=== PATIENT | male | born 2000 | race Caucasian/White ===

== ENCOUNTER → 2021-07-24 15:48 | Outpatient (BNVA) | payer BC, SELFPAY | PROVIDERS: Visit Provider Nurse Practitioner Family | DX: Z20.822 Contact with and (suspected) exposure to COVID-19 (principal) | CPT/HCPCS: 87635 ==

== ENCOUNTER 2021-09-13 14:18 | Emergency (ER) | payer OTHER, SELFPAY ==
[2021-09-13 14:35] VITALS: BP 160/100; PULSE 99; RESP 14; TEMP 36.9; O2SAT 98; BMI 38.8
--- NOTE | 2021-09-13 14:41 | ED_ITS ---
HPI - Eye Problem General: Chief complaint: Eye Problems Stated complaint: LEFT EYE TROUBLE Time Seen by Provider: 09/13/21 14:41 Source: patient Mode of arrival: ambulatory Limitations: no limitations History of Present Illness: HPI Narrative: Patient is a 21-year-old male who presents to ED today for evaluation of his left eye. Patient tells me he was working on a corroded battery when he feels like a small amount of metal/corrosion flipped into his left eye. Patient tells me he immediately irrigated the eye copiously. He has since complained of some mild burning and redness. He is not having any visual changes. No foreign body sensation. Tetanus is UTD. chief complaint: eye pain and eye redness Onset (ago): hour(s) Onset description: sudden Location: left eye Eye Symptoms: burning and redness Place: work Mechanism: chemical exposure Severity: mild Associated symptoms: Reports no associated symptoms; Denies headache(s) Treatments Prior to Arrival: irrigated eye Related Data: Patient tetanus UTD: Yes Review of Systems Eyes: Reports: eye discomfort; Denies: change in vision, blurry vision, blind spots, photophobia, eye discharge, floaters or seeing flashes Neuro: Denies: headache(s) PFSH ED PFSH: Social History (Updated 07/24/21 @ 15:39 by Kirstie Kim NP) Smoking and tobacco status: never smoked Alcohol intake: never Physical Exam Const: COMMON NORMALS: no acute distress, patient oriented x3, no limitations and alert GENERAL APPEARANCE: cooperative Eye: COMMON NORMALS: Equal, round and reactive pupils present, EOMs intact bilaterally and no scleral icterus GENERAL EYE: normal light reflex VISUAL ACUITY: Yes acuity normal ALIGNMENT: Yes alignment normal PERIORBITAL: periorbital findings normal EYELID: eyelids normal CONJUNCTIVA: Yes conjunctival abnormal positive left (injection) SCLERA: sclerae normal CORNEA: Yes corneas normal PUPIL: Yes Equal, round and reactive pupils present DIRECT OPHTHALMOSCOPY: Yes normal light reflex OTHER: he did have a very small/barron white foreign body (that most likley was corrosive material) floating around that was easily removed with moist q-tip; pH of the eye was tested with litmus paper and is normal and equal to unaffected eye; no corneal abrasion or ulcer visualized with fluorescein stain; no globe injury Neuro: COMMON NORMALS: patient oriented x3 SENSORIUM/ORIENTATION: Yes alert Course Vital Signs: Vital signs: Vital Signs Temperature 98.4 F 09/13/21 14:35 Pulse Rate 99 09/13/21 14:35 Respiratory Rate 14 09/13/21 14:35 Blood Pressure 160/100 09/13/21 14:35 Pulse Oximetry 98 09/13/21 14:35 MDM - Eye Problem MDM Narrative: Medical decision making narrative: Very small foreign body was easily removed. I do not visualize any corneal abrasion or ulcer at this time. Most likely has a very mild chemical burn to the eye. pH was normal. Eye was copiously irrigated and instructions to continue this at home. He will be placed on erythromycin ointment. Strict return to ED precautions given. He does not complain of visual changes or fb sensation at this time. Discharge Plan Discharge Patient Disposition: Home Clinical Impression: Chemical burn of left eye Condition: Stable Prescriptions: New erythromycin 5 mg/gram (0.5 %) ointment 1 applic ophthalmic (eye) Q4H 7 Days Qty: 1 RF: 0 Discharge Orders: Discharge ED (Routine); Ordered 09/13/21 Ordered By: Vanda Layne Patient Instructions: Chemical Eye [place] (ED) Activity Restrictions/Additional Instructions: As we discussed continue irrigating the eye several times daily. You may apply the erythromycin ointment as directed. As we discussed you need to return to the ED immediately for severe eye pain, discharge, changes to vision, foreign body sensation or any other concerns you may have. Coding Level of Care Code ED [employer] for [employer] Exam Expanded Problem Focused
[2021-09-13] MEDS: fluorescein 1 mg Strip EYE-LEFT (15:23)
[2021-09-13] MEDS: tetracaine 0.5% Op Soln 4 mL Btl 1 DROP EYE-LEFT (15:23)
[2021-09-13] MEDS: eye irrigation 30 mL Btl EYE-LEFT (15:24)
== END 2021-09-13 15:54 | disposition home or self-care (01) ==
PROVIDERS: Emergency Provider Physician Assistant
DX: T65.91XA Toxic effect of unspecified substance, accidental (unintentional), initial encounter (principal); T26.92XA Corrosion of left eye and adnexa, part unspecified, initial encounter
CPT/HCPCS: 99283

== ENCOUNTER → 2024-05-26 17:17 | Outpatient (BNVA) | payer BC, SELFPAY | PROVIDERS: PCP Nurse Practitioner Family; Visit Provider Specialist | DX: R56.9 Unspecified convulsions (principal); G40.109 Localization-related (focal) (partial) symptomatic epilepsy and epileptic syndromes with simple partial seizures, not intractable, without status epilepticus; R29.90 Unspecified symptoms and signs involving the nervous system | CPT/HCPCS: 36415; 82550 ==

== ENCOUNTER 2025-04-11 03:21 | Emergency (ER) | payer OTHER, SELFPAY ==
[2025-04-11 03:22] VITALS: BP 117/84; PULSE 77; RESP 19; TEMP 37.5; O2SAT 96; BMI 37.2
[2025-04-11 03:29] VITALS: BP 117/84; PULSE 91; RESP 20; O2SAT 92
[2025-04-11 03:38] LABS: Basophils # 0.1 10^3/uL (0.0-0.1); Basophils % 0.6 %; Eosinophils % 0.1 %; Hematocrit 47.4 % (37-53); Lymphocytes # 1.4 10^3/uL (0.8-4.8); Lymphocytes % 8.9 %; Mean Corpuscular Hemoglobin 30.2 pg (27-33); Mean Corpuscular Volume 88.9 fl (82-101); Monocytes # 0.7 10^3/uL (0.2-0.9); Monocytes % 4.6 %; Neutrophils # 13.02 10^3/uL (1.8-7.7); Nucleated Red Blood Cells % 0 %; Platelet Count 218 10^3/cmm (157-399); Red Blood Count 5.33 10^6/uL (3.85-5.65); Red Cell Distribution Width 12.4 % (12.1-15.1); White Blood Count 15.32 10^3/uL (3.29-11.43)
--- NOTE | 2025-04-11 03:51 | CTR_ITS ---
PROCEDURE INFORMATION: Exam: CT Head Without Contrast Exam date and time: 04/11/2025 4:05 AM Age: 25 years old Clinical indication: Condition or disease; Convulsions or seizures; Prior surgery; Surgery date: 6+ months; Surgery type: Benign tumor resection; Multiple seizures today. States worsening seizures over the last year and a half. History of frontal tumor resection in 2018. ; Additional info: Recurrent seizures TECHNIQUE: Imaging protocol: Computed tomography of the head without contrast. Radiation optimization: All CT scans at this facility use at least one of these dose optimization techniques: automated exposure control; mA and/or kV adjustment per patient size (includes targeted exams where dose is matched to clinical indication); or iterative reconstruction. COMPARISON: No relevant prior studies available. RADIATION DOSE METRICS: Total DLP (mGy-cm): 1041.7 FINDINGS: Brain: Postsurgical changes noted along the undersurface of the frontal lobes including edema and/or encephalomalacia. Prior imaging would be of great use to determine interval change. Cerebral ventricles: No ventriculomegaly. Paranasal sinuses: Mucosal thickening is noted within the visualized paranasal sinuses. Mastoid air cells: Visualized mastoid air cells are well aerated. Bones: The patient is post frontal craniotomy. There is no midline shift, acute hemorrhage, extra-axial fluid collection. There is a defect in the left cribriform plate which is probably postsurgical. Soft tissues: Unremarkable. CT/CT head wo con* [id number] IMPRESSION: Postsurgical change as described. Prior imaging would be of great use to determine interval change.
--- NOTE | 2025-04-11 03:54 | ED_ITS ---
HPI - Seizure 2 General: Chief Complaint: Seizure Stated Complaint: SEIZURE Time Seen by Provider: 04/11/25 03:38 History of Present Illness: HPI Narrative: Patient presents to ED with multiple seizures today, accompanied by caregiver. Reports having six seizures throughout the day, including two episodes occurring within 15 minutes of each other, and two [id number] episodes. Caregiver notes these seizures are different from patient's typical pattern, with concerning features including prolonged post-ictal state and decreased alertness between episodes. Patient typically experiences maximum of two seizures per day. 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 Currently under care of Dr. Patrick at , with scheduled appointment on April 21 for planned invasive monitoring with intracranial electrodes for surgical planning. Seizure characteristics include generalized shaking with typical post-ictal period lasting approximately 10 minutes. Today's episodes notably different with prolonged recovery time. Patient reports current severe headache. Positive for tongue biting during episodes. Denies recent illness, fever, or vomiting. Medication compliance reported as excellent. Patient has prescribed emergency rescue medication (liquid form) but it has and caregiver reports difficulty with administration during seizures. Seizure History: Yes Place: Home Related Data Home Medications ?Medication ?Instructions ?Recorded ?Confirmed testosterone cypionate 100 mg/mL 100 mg IM .bi weekly 02/13/24 05/26/24 intramuscular oil (Depo-Testosterone) Previous Rx's ?Medication ?Instructions ?Recorded lorazepam 2 mg/mL oral concentrate 2 mg PO ONCE PRN se izures #30 mL 02/13/24 (Lorazepam Intensol) levetiracetam 500 mg 4,000 mg (8 x 500 mg) PO Q24 H 1 04/01/24 tablet,extended release 24 hr month #240 tabs (Keppra XR) diazepam 10 mg/spray (0.1 mL) 10 mg (0.1 mL) intranasa l ONCE PRN 04/11/25 nasal spray seizure activity #5 sprays zonisamide 100 mg capsule 500 mg (5 x 100 mg) PO DAILY #120 04/11/25 caps Allergies Allergy/AdvReac Type Severity Reaction Status Date / Time No Known Allergies Allergy Verified 05/26/24 15:41 Review of Systems 2 General: Reports: 10 or more systems reviewed and unremarkable except in HPI and below PFSH ED 2 PFSH: Social History Smoking and tobacco/nicotine status: never used tobacco/nicotine Alcohol intake: never Physical Exam 2 Const: COMMON NORMALS: no acute distress; negative for alert HENMT: COMMON NORMALS: normocephalic, Normal nasal mucous membranes and turbinates present and moist oral mucous membranes HEAD & SCALP: n ormocephalic NOSE: Normal nasal mucous membranes and turbinates present Eye: GENERAL EYE: appearance normal, both eyes and all related structures Chest: COMMONS NORMALS: normal inspection of the chest Resp: COMMON NORMALS: normal respiratory effort and No use of accessory muscles Cardio: COMMON NORMALS: regular rate, regular rhythm, S1 normal heart sound present and S2 normal heart sound present RATE: regular rate RHYTHM: r egular rhythm HEART SOUNDS: S1 normal heart sound present and S2 normal heart sound present Neuro: COMMON NORMALS: CN's II-XII intact bilaterally, moves all extremities, no focal motor deficits and no sensory deficits noted SENSORIUM/ORIENTATION: No alert Course 2 Vital Signs: Vital signs: Vital Signs Temperature 99.5 F 04/11/25 03:22 Pulse Rate 94 04/11/25 04:29 Respiratory Rate 18 04/11/25 04:29 Blood Pressure 118/71 04/11/25 04:29 Pulse Oximetry 94 04/11/25 04:29 Oxygen Delivery Me thod Room Air 04/11/25 04:29 MDM - Seizure MDM Narrative Medical decision making narrative: 1. Status Epilepticus: - Multiple seizures in 24-hour period with incomplete recovery between episodes - Plan: Immediate administration of anti-epileptic medication to break seizure cycle - Obtain routine laboratory studies - CT scan of head to rule out acute changes given history of brain tumor 2. History of Brain Tumor: - Stable, status post two prior surgeries - Upcoming evaluation for possible surgical intervention - Will contact Dr. Patrick for care coordination 3. Disposition: - Emergency department observation pending results and response to treatment - Update rescue medication prescription - Patient education regarding seizure precautions and when to seek emergency care Lab Data 04/11/25 03:30 04/11/25 03:30 Labs: Radiology Impressions Head CT 04/11/25 03:51 IMPRESSION: Postsurgical change as described. Prior imaging would be of great use to determine interval change. Laboratory Results WBC 15.32 10^3/uL (3.29-11.43) H 04/11/25 03:30 RBC 5.33 10^6/uL (3.85-5.65) 04/11/25 03:30 Hgb 16.10 g/dL (11.27-16.99) 04/11/25 03:30 Hct 47.4 % (37-53) 04/11/25 03:30 MCV 88.9 fl (82-101) 04/11/25 03:30 MCH 30.2 pg (27-33) 04/11/25 03:30 MCHC 34.0 g/dL (30-55) 04/11/25 03:30 RDW 12.4 % (12.1-15.1) 04/11/25 03:30 Plt Count 218 10^3/cmm (157-399) 04/11/25 03:30 MPV 10.0 fL (7.4-10.4) 04/11/25 03:30 Neut % (Auto) 85.0 % 04/11/25 03:30 Lymph % (Auto) 8.9 % 04/11/25 03:30 [place] % (Auto) 4.6 % 04/11/25 03:30 Eos % (Auto) 0.1 % 04/11/25 03:30 Baso % (Auto) 0.6 % 04/11/25 03:30 Neut # (Auto) 13.02 10^3/uL (1.8-7.7) H 04/11/25 03:30 Lymph # (Auto) 1.4 10^3/uL (0.8-4.8) 04/11/25 03:30 [place] # (Auto) 0.7 10^3/uL (0.2-0.9) 04/11/25 03:30 Eos # (Auto) 0.0 10^3/uL (0.0-0.8) 04/11/25 03:30 Baso # (Auto) 0.1 10^3/uL (0.0-0.1) 04/11/25 03:30 Nucleated RBC % (auto) 0 % 04/11/25 03:30 Nucleated RBCs # 0.0 /100WBC 04/11/25 03:30 Sodium 141 mmol/L (136-145) 04/11/25 03:30 Potassium 4.1 mmol/L (3.5-5.1) 04/11/25 03:30 Chloride 107 mmol/L (98-107) 04/11/25 03:30 Carbon Dioxide 21 mmol/L (22-29) L 04/11/25 03:30 Anion Gap 17.1 (5-19) 04/11/25 03:30 BUN 15 mg/dL (6-20) 04/11/25 03:30 Creatinine 1.0 mg/dL (0.7-1.2) 04/11/25 03:30 GFR Calculation 91.0 mL/min (90-130) 04/11/25 03:30 Glucose 105 mg/dL (65-115) 04/11/25 03:30 Calculated Osmolality 293 mOsm/kg (285-295) 04/11/25 03:30 Lactic Acid 1.7 mmol/L (0.5-2.2) 04/11/25 03:45 Calcium 9.4 mg/dL (8.5-10.5) 04/11/25 03:30 Total Bilirubin 0.3 mg/dL (0.15-1.2) 04/11/25 03:30 AST 19 U/L (0-40) 04/11/25 03:30 ALT 25 U/L (0-41) 04/11/25 03:30 Alkaline Phosphatase 89 U/L (40-130) 04/11/25 03:30 Total Protein 7.5 g/dL (6.6-8.7) 04/11/25 03:30 Albumin 4.3 g/dL (3.5-5.2) 04/11/25 03:30 Globulin 3.2 g/dL (1.3-4.6) 04/11/25 03:30 All radiology interpretation(s) finalized by discharge Discharge Plan Discharge Patient Disposition: Home Clinical Impression: Seizures, generalized convulsive Condition: Stable Prescriptions: New diazepam 10 mg/spray (0.1 mL) spray,non-aerosol 10 mg intranasal ONCE PRN (Reason: seizure activity) Qty: 5 0RF Changed zonisamide 100 mg capsule 500 mg PO DAILY Qty: 120 4RF Rx Instructions: 2/ day for 7 days then 4/day No Action testosterone cypionate [Depo-Testosterone] 100 mg/mL oil 100 mg IM .bi weekly lorazepam [Lorazepam Intensol] 2 mg/mL concentrate 2 mg PO ONCE PRN (Reason: seizures) Qty: 30 2RF levetiracetam [Keppra XR] 500 mg tablet extended release 24 hr 4,000 mg PO Q24H 30 Days Qty: 240 6RF Discharge Orders: Discharge ED (Routine); Ordered 04/11/25 Ordered By: Sudhakar Gillespie Referrals: FRIENDIRWIN [Referring, Nurse Practitioner] Discharge Diet: Advance as tolerated Discharge Activity: Limit activity as instructed Patient Instructions: Opioid Safety, Pain Management Activity Restrictions/Additional Instructions: 1. Seizure precautions. Take Rx as directed. 2. Call Neurology for follow up. 3. Return for new or worsening symptoms. Print Language: Omani Coding Level of Care Code ED [employer] for [employer]res
[2025-04-11 03:58] LABS: Alanine Aminotransferase 25 U/L (0-41); Albumin Level 4.3 g/dL (3.5-5.2); Alkaline Phosphatase 89 U/L (40-130); Anion Gap 17.1 (5-19); Aspartate Amino Transferase 19 U/L (0-40); Blood Urea Nitrogen 15 mg/dL (6-20); Calcium 9.4 mg/dL (8.5-10.5); Carbon Dioxide 21 mmol/L (22-29); Chloride 107 mmol/L (98-107); Creatinine Clr Calc Pharmacy 136.5497; Globulin 3.2 g/dL (1.3-4.6); Glucose 105 mg/dL (65-115); Osmolality Calculated 293 mOsm/kg (285-295); Potassium 4.1 mmol/L (3.5-5.1); Sodium 141 mmol/L (136-145); Total Bilirubin 0.3 mg/dL (0.15-1.2); Total Protein 7.5 g/dL (6.6-8.7)
[2025-04-11] MEDS: LORazepam 1 MG/0.5 ML injection 2 MG IVP (03:59)
[2025-04-11 04:04] LABS: Lactic Sepsis W/Reflex 1.7 mmol/L (0.5-2.2)
[2025-04-11 04:29] VITALS: BP 118/71; PULSE 94; RESP 18; O2SAT 94
[2025-04-11 05:17] VITALS: BP 109/68; PULSE 100; RESP 15; O2SAT 91
== END 2025-04-11 05:21 | disposition home or self-care (01) ==
PROVIDERS: Emergency Provider Family Medicine
DX: G40.409 Other generalized epilepsy and epileptic syndromes, not intractable, without status epilepticus (principal)
CPT/HCPCS: 36415; 70450; 80053; 83605; 85025; 96374; 99285; J2060